=== PATIENT | female | born 1980 | race Two or more races ===

== ENCOUNTER 2018-11-24 11:56 | Inpatient (IN) | payer BC ==
[~2018-11-24] VITALS: Ht 154.9 cm; Wt 111.1 kg
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
[2018-11-24 12:05] VITALS: BP 115/58
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
[2018-11-24 12:56] LABS: APPEARANCE,URINE CLEAR; BILIRUBIN, URINE NEGATIVE (NEGATIVE); COLOR,URINE PALE YELLOW; GLUCOSE, URINE (UA) NEGATIVE (NEGATIVE); KETONES,URINE 3+ (NEGATIVE); LEUKOCYTE ESTERASE ,URINE 2+ (NEGATIVE); NITRITE,URINE NEGATIVE (NEGATIVE); PH,URINE 7 (4.5-8.0); PROTEIN,URINE NEGATIVE (NEGATIVE); UROBILINOGEN,URINE NORMAL MG/DL (0.0-1.0)
[2018-11-24 13:03] LABS: BASOPHILS % (AUTO) 1.1 % (0.0-2.0); EOSINOPHILS % (AUTO) 0.6 % (0.0-3.0); HEMATOCRIT 36.1 % (37.0-47.0); HEMOGLOBIN 10.5 G/DL (12.0-16.0); LYMPHOCYTES % (AUTO) 22.3 % (20.0-45.0); MEAN CORPUSCULAR VOLUME 62 FL (80-99); MONOCYTES % (AUTO) 7.5 % (1.0-10.0); NEUTROPHILS % (AUTO) 68.6 % (45.0-75.0); PLATELET COUNT 366 K/UL (150-450); RED BLOOD COUNT 5.81 M/UL (4.20-5.40)
[2018-11-24 13:12] LABS: ANION GAP 12 mmol/L (5-15); BLOOD UREA NITROGEN 18 mg/dL (7-18); CALCIUM 9.9 MG/DL (8.5-10.1); CARBON DIOXIDE 24 MMOL/L (21-32); CHLORIDE 101 MMOL/L (98-107); CREATININE 0.7 MG/DL (0.55-1.30); POTASSIUM 3.5 MMOL/L (3.5-5.1); SODIUM 137 MMOL/L (136-145)
[2018-11-24 13:24] LABS: ALANINE AMINOTRANSFERASE 29 U/L (12-78); ALBUMIN 3.9 G/DL (3.4-5.0); ALBUMIN/GLOBULIN RATIO 0.8 (1.0-2.7); ALKALINE PHOSPHATASE 132 U/L (46-116); ASPARTATE AMINO TRANSFERASE 37 U/L (15-37); BILIRUBIN,TOTAL 1.3 MG/DL (0.2-1.0); CREATINE KINASE 166 U/L (26-308)
[2018-11-24 13:25] LABS: BILIRUBIN,DIRECT 0.2 MG/DL (0.0-0.3)
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
[2018-11-24] MEDS ORDERED: Metoprolol 5mg/5ml Inj IVP STA (13:38)
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
--- NOTE | 2018-11-24 13:55 | NUR ---
ED Nurse Note: asked ERMD for purpose of Metoprolol. per ERMD it is for NSTEMI. ok to administrate.
[2018-11-24] MEDS ORDERED: NKM (14:13)
[2018-11-24] MEDS ORDERED: Azithromycin 250mg tab ORAL ONE (14:15)
[2018-11-24] MEDS ORDERED: cefTRIAXone 1 GM in NS 55 ML IVPB ONE (14:15)
--- NOTE | 2018-11-24 15:14 | NUR ---
ED Nurse Note: x-ray at bedside.
--- NOTE | 2018-11-24 15:19 | NUR ---
ED Nurse Note: report given to MJ Miranda. pt will be transfer after ERMD review the chest x-ray results which was just taken.
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
--- NOTE | 2018-11-24 16:15 | NUR ---
ED Nurse Note: pt left unit with 1 RN and 1 fisheries technician in stable condition. [employer] will be directed to SDU when they arrive.
[2018-11-24 16:24] VITALS: BP 126/77
--- NOTE | 2018-11-24 16:25 | NUR ---
NURSE NOTES: Pt informed about MRSA, CRE and VRE screen but refused swabs.
--- NOTE | 2018-11-24 16:38 | Diagnostic Imaging Report ---
Indication: Reason For Exam: SYNCOPE Technique: Single AP view of the chest. Comparison: None. Findings: The cardiomediastinal silhouette is within normal limits. There is no focal consolidation, pneumothorax or pleural effusion. Osseous structures demonstrate no acute abnormality. IMPRESSION: No radiographic evidence of acute cardiopulmonary disease.
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
--- NOTE | 2018-11-24 16:49 | Cardiac Electrophysiology PN ---
Subjective Subjective [id number] Objective Last 24 Hour Vital Signs Date Time Temp Pulse Resp B/P (MAP) Pulse Ox O2 Delivery O2 Flow Rate FiO2 11/24/18 16:15 98.2 84 16 101/70 100 Room Air 11/24/18 13:53 70 118/66 11/24/18 12:05 74 16 Room Air 11/24/18 12:05 98.2 74 16 115/58 100 Room Air 11/24/18 11:54 98.2 73 16 123/77 (92) 100 Room Air Laboratory Tests Test 11/24/18 12:29 White Blood Count 9.0 K/UL (4.8-10.8) Red Blood Count 5.81 M/UL (4.20-5.40) H Hemoglobin 10.5 G/DL (12.0-16.0) L Hematocrit 36.1 % (37.0-47.0) L Mean Corpuscular Volume 62 FL (80-99) L Mean Corpuscular Hemoglobin 18.1 PG (27.0-31.0) L Mean Corpuscular Hemoglobin Concent 29.1 G/DL (32.0-36.0) L Red Cell Distribution Width 16.0 % (11.6-14.8) H Platelet Count 366 K/UL (150-450) Mean Platelet Volume 5.6 FL (6.5-10.1) L Neutrophils (%) (Auto) 68.6 % (45.0-75.0) Lymphocytes (%) (Auto) 22.3 % (20.0-45.0) Monocytes (%) (Auto) 7.5 % (1.0-10.0) Eosinophils (%) (Auto) 0.6 % (0.0-3.0) Basophils (%) (Auto) 1.1 % (0.0-2.0) Urine Color Pale yellow Urine Appearance Clear Urine pH 7 (4.5-8.0) Urine Specific [place] 1.010 (1.005-1.035) Urine Protein Negative (NEGATIVE) Urine Glucose (UA) Negative (NEGATIVE) Urine Ketones 3+ (NEGATIVE) H Urine Blood Negative (NEGATIVE) Urine Nitrite Negative (NEGATIVE) Urine Bilirubin Negative (NEGATIVE) Urine Urobilinogen Normal MG/DL (0.0-1.0) Urine Leukocyte Esterase 2+ (NEGATIVE) H Urine RBC 5-10 /HPF (0 - 2) H Urine WBC 0-2 /HPF (0 - 2) Urine Squamous Epithelial Cells Moderate /LPF (NONE/OCC) H Urine Bacteria Few /HPF (NONE) Urine HCG, Qualitative Negative (NEGATIVE) Sodium Level 137 MMOL/L (136-145) Potassium Level 3.5 MMOL/L (3.5-5.1) Chloride Level 101 MMOL/L (98-107) Carbon Dioxide Level 24 MMOL/L (21-32) Anion Gap 12 mmol/L (5-15) Blood Urea Nitrogen 18 mg/dL (7-18) Creatinine 0.7 MG/DL (0.55-1.30) Estimat Glomerular Filtration Rate > 60 mL/min (>60) Glucose Level 115 MG/DL (74-106) H Calcium Level 9.9 MG/DL (8.5-10.1) Total Bilirubin 1.3 MG/DL (0.2-1.0) H Direct Bilirubin 0.2 MG/DL (0.0-0.3) Aspartate Amino Transf (AST/SGOT) 37 U/L (15-37) Alanine Aminotransferase (ALT/SGPT) 29 U/L (12-78) Alkaline Phosphatase 132 U/L (46-116) H Total Creatine Kinase 166 U/L (26-308) Troponin I 0.192 ng/mL (0.000-0.056) Total Protein 9.1 G/DL (6.4-8.2) H Albumin 3.9 G/DL (3.4-5.0) Globulin 5.2 g/dL Albumin/Globulin Ratio 0.8 (1.0-2.7) L Thyroid Stimulating Hormone (TSH) 1.049 uiU/mL (0.358-3.740) Salicylates Level < 0.2 ug/mL (2.8-20) L Urine Opiates Screen Negative (NEGATIVE) Acetaminophen Level < 2 MCG/ML (10-30) L Urine Barbiturates Screen Negative (NEGATIVE) Phencyclidine (PCP) Screen Negative (NEGATIVE) Urine Amphetamines Screen Positive (NEGATIVE) H Urine Benzodiazepines Screen Negative (NEGATIVE) Urine Cocaine Screen Negative (NEGATIVE) Urine Marijuana (THC) Screen Negative (NEGATIVE) Serum Alcohol < 3 mg/dL Chlamydia trachomatis RNA Pending Neisseria gonorrhoeae RNA Pending Isaias Pugh MD Nov 24, 2018 16:49
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
--- NOTE | 2018-11-24 19:26 | NUR ---
HAND-OFF: Report given to MJ Mitchell. Pt in stable condition.
--- NOTE | 2018-11-24 19:27 | NUR ---
NURSE NOTES: Received bedside report from MJ Valentine.Patient stable,A&O x4,no c/o pain,no respiratory distress noted,tolerated r/air well,diminished lungs sounds bilateral,BS active in all quadrants,IV asymptomatic,on L hand 20G 1/2 NS @ 70ml/hr,bed secured in a low safety position,pt ambulatory stable,call light within a reach.Will continue to monitor and follow POC
[2018-11-24 20:00] VITALS: BP 112/83
--- NOTE | 2018-11-24 20:17 | NUR ---
NURSE NOTES: Received a phone call from lab,Troponin 0.153 it's trending down.Charge nurse aware.
--- NOTE | 2018-11-24 20:18 | NUR ---
NURSE NOTES: Received an order from to change pt's diet from NPO to cardiac,charge nurse aware.
[2018-11-24] MEDS: Atorvastatin 20mg tab ORAL SCH (20:51)
[2018-11-24] MEDS ORDERED: Metoprolol 25mg tab ORAL SCH (21:00)
[2018-11-25] VITALS: BP 110/78
[2018-11-25 04:00] VITALS: BP 120/68
[2018-11-25 05:19] LABS: BASOPHILS % (AUTO) 0.7 % (0.0-2.0); EOSINOPHILS % (AUTO) 2.1 % (0.0-3.0); HEMOGLOBIN 9.4 G/DL (12.0-16.0); LYMPHOCYTES % (AUTO) 25.9 % (20.0-45.0); MEAN CORPUSCULAR VOLUME 62 FL (80-99); MONOCYTES % (AUTO) 7.6 % (1.0-10.0); NEUTROPHILS % (AUTO) 63.7 % (45.0-75.0); PLATELET COUNT 340 K/UL (150-450); RED BLOOD COUNT 5.12 M/UL (4.20-5.40); RED CELL DISTRIBUTION WIDTH 15.8 % (11.6-14.8); WHITE BLOOD COUNT 9.2 K/UL (4.8-10.8)
[2018-11-25 05:52] LABS: ALANINE AMINOTRANSFERASE 24 U/L (12-78); ALBUMIN 3.4 G/DL (3.4-5.0); ALBUMIN/GLOBULIN RATIO 0.8 (1.0-2.7); ALKALINE PHOSPHATASE 123 U/L (46-116); ANION GAP 8 mmol/L (5-15); ASPARTATE AMINO TRANSFERASE 21 U/L (15-37); BILIRUBIN,TOTAL 1.1 MG/DL (0.2-1.0); BLOOD UREA NITROGEN 14 mg/dL (7-18); CALCIUM 8.9 MG/DL (8.5-10.1); CARBON DIOXIDE 27 MMOL/L (21-32); CHLORIDE 104 MMOL/L (98-107); CHOLESTEROL 112 MG/DL (< 200); CREATININE 0.6 MG/DL (0.55-1.30); HDL CHOLESTEROL 25 MG/DL (40-60); POTASSIUM 3.6 MMOL/L (3.5-5.1); SODIUM 139 MMOL/L (136-145); TRIGLYCERIDES 94 MG/DL (30-150)
[2018-11-25 06:11] LABS: BILIRUBIN,DIRECT 0.3 MG/DL (0.0-0.3)
--- NOTE | 2018-11-25 07:31 | NUR ---
HAND-OFF: Report given to MJ Dean/MJ Pennington.Patient sleeping,stable.
--- NOTE | 2018-11-25 07:32 | NUR ---
NURSE NOTES: Report received from MJ Mitchell. Pt was awake, A & O x4, able to ambulate to restroom. NSR on athletic monitor. On room air. Pt denies chest pain and no other discomfort. IV Lt Hand #20, running 1/2 NS @ 70mL/hr. Bed in lowest position, call light within reach, side rails up x2. Will resume plan of care.
[2018-11-25 08:00] VITALS: BP 156/114
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
[2018-11-25 08:49] LABS: FERRITIN 11 NG/ML (8-388); PHOSPHORUS 5.1 MG/DL (2.5-4.9)
[2018-11-25 09:03] LABS: % IRON SATURATION 6 % (15-50); IRON 27 ug/dL (50-175); TOTAL IRON BINDING CAPACITY 442 ug/dL (250-450)
--- NOTE | 2018-11-25 09:30 | NUR ---
NURSE NOTES: 2D echo being done at bedside. Will administer medication after 2D echo.
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
--- NOTE | 2018-11-25 10:00 | NUR ---
NURSE NOTES: Venous duplex done at bedside. Negative results. OK to apply SCD.
[2018-11-25] MEDS: Aspirin EC 325mg tab ORAL SCH (10:24)
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
[2018-11-25 12:00] VITALS: BP_SYST 108; BP_SYST 146; BP_DIAS 111; BP_DIAS 75
--- NOTE | 2018-11-25 13:26 | Consultation ---
Consult Note Consult Note asked to eval for abnormal UA and fluid management Patient presents with near syncope. Apparently she has not eaten anything since Friday. She was taking a shower and felt that she was about to pass out. She says that she lost her vision when she was laying down after getting out of the shower. She felt hot flashes during that time. She feels overwhelmed by taking care of her children at this time she is not having any help from her who is not living with her. She does have some help from her brother. Recently she is lost contact with her parents and also with a younger sibling. Patient reports gestational diabetes. She has a 1-1/2-year-old at home. She states she feels safe at home. No fevers, chills, sore throat, chest pain, palpitations, nausea, vomiting, diarrhea, dysuria, abdominal pain, shortness of breath, joint pain, rashes, headache. See further history and medical treatment plan. No Known Allergies examined data reviewed Assessment/Plan UTI Dehydration Low Iron Anemia Gestational Dm Obese Near syncope NSTEMI (non-ST elevated myocardial infarction)- elevated troponin I Major depression Tox screen positive for amphetamine IV Iron Urine cultures Keep BP in check HgbA1c per orders Paul Cagle MD Nov 25, 2018 13:26
--- NOTE | 2018-11-25 13:31 | NUR ---
NURSE NOTES: Pt c/o of nausea. PRN Zofran 4MG IV given. Will reasses pt.
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
[2018-11-25 16:00] VITALS: BP 93/49
[2018-11-25] MEDS: Docusate 100mg cap ORAL SCH (17:24)
--- NOTE | 2018-11-25 19:10 | NUR ---
NURSE NOTES: Pt report received from Jose Juan Maurer. pt appears to be stable and resting in bed. pt is alert and oriented times 4. and able to folow commands.. pt vital sings are stable. pt cyber security instructor shows normal SR at this moment, no abnormalities noted cardiac jacobsen. pt is on room air and able to sat at 100%, no abnormalities noted respiratory jacobsen. pts bed is low and locked, armed, and bed rails up times 2, call light within reach. will continue plan of care.
--- NOTE | 2018-11-25 19:28 | NUR ---
HAND-OFF: Report given to Arun Mills RN.
[2018-11-25 20:00] VITALS: BP 107/54
[2018-11-25] MEDS: Atorvastatin 20mg tab ORAL SCH (20:48)
[2018-11-25] MEDS ORDERED: Iron Sucrose 100 MG in NS 55 ML IV SCH (21:00)
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
[2018-11-26] VITALS: BP 135/78
[2018-11-26 04:00] VITALS: BP 113/60
[2018-11-26 05:02] LABS: BASOPHILS % (AUTO) 0.7 % (0.0-2.0); EOSINOPHILS % (AUTO) 2.3 % (0.0-3.0); HEMATOCRIT 32.9 % (37.0-47.0); HEMOGLOBIN 9.5 G/DL (12.0-16.0); LYMPHOCYTES % (AUTO) 27.3 % (20.0-45.0); MEAN CORPUSCULAR VOLUME 63 FL (80-99); MONOCYTES % (AUTO) 8.2 % (1.0-10.0); NEUTROPHILS % (AUTO) 61.5 % (45.0-75.0); PLATELET COUNT 314 K/UL (150-450); RED BLOOD COUNT 5.24 M/UL (4.20-5.40); RED CELL DISTRIBUTION WIDTH 16.4 % (11.6-14.8); WHITE BLOOD COUNT 7.8 K/UL (4.8-10.8)
[2018-11-26 05:59] LABS: PHOSPHORUS 4.2 MG/DL (2.5-4.9)
[2018-11-26 06:02] LABS: ALANINE AMINOTRANSFERASE 19 U/L (12-78); ALBUMIN 3.2 G/DL (3.4-5.0); ALBUMIN/GLOBULIN RATIO 0.7 (1.0-2.7); ALKALINE PHOSPHATASE 119 U/L (46-116); ANION GAP 11 mmol/L (5-15); ASPARTATE AMINO TRANSFERASE 19 U/L (15-37); BILIRUBIN,TOTAL 0.8 MG/DL (0.2-1.0); BLOOD UREA NITROGEN 10 mg/dL (7-18); CALCIUM 8.7 MG/DL (8.5-10.1); CARBON DIOXIDE 24 MMOL/L (21-32); CHLORIDE 105 MMOL/L (98-107); CHOLESTEROL 89 MG/DL (< 200); CREATININE 0.5 MG/DL (0.55-1.30); HDL CHOLESTEROL 25 MG/DL (40-60); POTASSIUM 3.2 MMOL/L (3.5-5.1); SODIUM 139 MMOL/L (136-145); TRIGLYCERIDES 75 MG/DL (30-150)
--- NOTE | 2018-11-26 06:24 | NUR ---
NURSE NOTES: contacted MD Loya and MD Serra about Pt Potassium 3.2. requested 40mEq K Dur PO. awaiting new orders.
--- NOTE | 2018-11-26 07:00 | NUR ---
NURSE NOTES: Received report from MJ Dias. Observed patient in bed, asleep, arousable to verbal stimuli. On room air, no respiratory distress noted at this time. Left hand IV 22g intact and patent with IV fluids infusing at prescribed rate. Denies pain/discomfort at this time. Safety precautions in place. Bed locked, alarmed and in lowest position, side rails up x3, and call light left within reach. Instructed to call for assistance, verbalized understanding. Will continue with plan of care.
--- NOTE | 2018-11-26 07:10 | NUR ---
HAND-OFF: Report given to Kristi Olivas pt remains in stable condition.
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
[2018-11-26 08:00] VITALS: BP 130/76
[2018-11-26] MEDS: Docusate 100mg cap ORAL SCH ×3 (08:21→17:51)
[2018-11-26] MEDS: Aspirin EC 325mg tab ORAL SCH (08:21)
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
[2018-11-26 12:00] VITALS: BP 117/66
--- NOTE | 2018-11-26 13:13 | NUR ---
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
--- NOTE | 2018-11-26 13:26 | Nephrology Progress Note ---
Assessment/Plan Problem List: (1) Near syncope (2) UTI (urinary tract infection) (3) Dehydration (4) Amphetamine abuse Assessment: + urine for met (5) Iron (Fe) deficiency anemia (6) Obese Assessment UTI Dehydration Low Iron Anemia Gestational DM- A1c up Obese Near syncope NSTEMI (non-ST elevated myocardial infarction)- elevated troponin I Major depression Tox screen positive for amphetamine Plan IV Iron- K supplement- Urine cultures Keep BP in check per orders Subjective ROS Limited/Unobtainable: No Constitutional: Reports: malaise Objective Objective Last 24 Hour Vital Signs Date Time Temp Pulse Resp B/P (MAP) Pulse Ox O2 Delivery O2 Flow Rate FiO2 11/26/18 12:00 98.0 90 20 117/66 (83) 98 11/26/18 12:00 Room Air 11/26/18 08:21 82 130/76 11/26/18 08:00 97.5 82 20 130/76 (94) 98 11/26/18 08:00 Room Air 11/26/18 07:40 80 11/26/18 04:00 98.2 62 20 113/60 (77) 100 11/26/18 04:00 60 11/26/18 04:00 Room Air 11/26/18 00:00 98.0 77 17 135/78 (97) 100 11/26/18 00:00 Room Air 11/26/18 00:00 70 11/25/18 20:00 66 11/25/18 20:00 98.2 68 16 107/54 (71) 100 11/25/18 20:00 Room Air 11/25/18 16:00 97.3 66 16 93/49 (64) 99 11/25/18 16:00 Room Air 11/25/18 15:11 70 Intake and Output 11/25/18 11/26/18 19:00 07:00 Intake Total 721.9 ml 655 ml Balance 721.9 ml 655 ml IV Total 721.9 ml 655 ml # Voids 3 # Bowel Movements 2 Laboratory Tests 11/26/18 03:46: White Blood Count 7.8, Red Blood Count 5.24, Hemoglobin 9.5L, Hematocrit 32.9L, Mean Corpuscular Volume 63L, Mean Corpuscular Hemoglobin 18.1L, Mean Corpuscular Hemoglobin Concent 28.9L, Red Cell Distribution Width 16.4H, Platelet Count 314, Mean Platelet Volume 5.5L, Neutrophils (%) (Auto) 61.5, Lymphocytes (%) (Auto) 27.3, Monocytes (%) (Auto) 8.2, Eosinophils (%) (Auto) 2.3, Basophils (%) (Auto) 0.7, Sodium Level 139, Potassium Level 3.2L, Chloride Level 105, Carbon Dioxide Level 24, Anion Gap 11, Blood Urea Nitrogen 10, Creatinine 0.5L, Estimat Glomerular Filtration Rate > 60, Glucose Level 85, Hemoglobin A1c 6.1H, Insulin Level [Pending], Calcium Level 8.7, Phosphorus Level 4.2, Magnesium Level 2.0, Total Bilirubin 0.8, Aspartate Amino Transf (AST /SGOT) 19, Alanine Aminotransferase (ALT/SGPT) 19, Alkaline Phosphatase 119H, C- Reactive Protein, Quantitative 0.6, Pro-B-Type Natriuretic Peptide 121, Total Protein 8.0, Albumin 3.2L, Globulin 4.8, Albumin/Globulin Ratio 0.7L, Triglycerides Level 75, Cholesterol Level 89, LDL Cholesterol 58, HDL Cholesterol 25L, Cholesterol/HDL Ratio 3.6 Height (Feet): 5 Height (Inches): 1.00 Weight (Pounds): 245 General Appearance: no apparent distress Respiratory/Chest: decreased breath sounds Abdomen: other - obese Objective no change Paul Cagle MD Nov 26, 2018 13:26
--- NOTE | 2018-11-26 14:28 | Hematology/Onc Progress Note ---
Assessment/Plan Assessment/Plan # Anemia due to iron deficiency, cause potentially related to menstration, common in young female --> continue on iv iron x 5 days total --> anemia panel has been reviewed --> b12 and folate is wnl --> no evidence of hemolysis --> defer transfusion unless hgb is <7 # Gestational DM- A1c up --> recommend exercise, weight loss, diet modification --> endo eval prn # NSTEMI (non-ST elevated myocardial infarction)- elevated troponin I --> per cards, now decreased trop, outpatient stress echo # Major depression --> Tox screen positive for amphetamine --> psych eval # Obese --> same as above, lifestyle modification rec # Electrolyte abnml --> per renal The timing of this note does not necessarily reflect the time of the patient was seen. Greatly appreciate consultation! Subjective Allergies: Coded Allergies: No Known Allergies (Unverified , 11/24/18) Subjective 11/26: continuing on iv iron, no f/c, no night sweats Objective Objective Current Medications Medications (Trade) Dose Ordered Sig/Ramos Route PRN Reason Start Time Stop Time Status Last Admin Dose Admin Amlodipine Besylate (Norvasc) 10 mg DAILY ORAL 11/26/18 09:00 12/26/18 08:59 11/26/18 08:21 Aspirin (Ecotrin) 325 mg DAILY ORAL 11/25/18 09:00 12/25/18 08:59 11/26/18 08:21 Atorvastatin Calcium (Lipitor) 20 mg BEDTIME ORAL 11/24/18 21:00 12/24/18 20:59 11/25/18 20:48 Docusate Sodium (Colace) 100 mg THREE TIMES A DAY ORAL 11/25/18 18:00 12/25/18 17:59 11/26/18 08:21 Iron Sucrose 100 mg/Sodium Chloride 55 ml @ 200 mls/hr BEDTIME IV 11/25/18 21:00 12/04/18 21:17 11/25/18 20:48 Ondansetron HCl (Zofran) 4 mg Q6H PRN IVP Nausea & Vomiting 11/24/18 15:45 12/24/18 15:44 11/25/18 13:31 Pantoprazole (Protonix) 40 mg EVERY 12 HOURS ORAL 11/25/18 21:00 12/25/18 20:59 11/26/18 08:21 Potassium Chloride (K-Dur) 40 meq TWICE A DAY ORAL 11/26/18 09:00 12/26/18 08:59 11/26/18 08:29 Sodium Chloride 1,000 ml @ 50 mls/hr Q20H IV 11/25/18 13:29 12/25/18 13:28 11/26/18 08:30 Last 24 Hour Vital Signs Date Time Temp Pulse Resp B/P (MAP) Pulse Ox O2 Delivery O2 Flow Rate FiO2 11/26/18 12:00 98.0 90 20 117/66 (83) 98 11/26/18 12:00 Room Air 11/26/18 11:27 89 11/26/18 08:21 82 130/76 11/26/18 08:00 97.5 82 20 130/76 (94) 98 11/26/18 08:00 Room Air 11/26/18 07:40 80 11/26/18 04:00 98.2 62 20 113/60 (77) 100 11/26/18 04:00 60 11/26/18 04:00 Room Air 11/26/18 00:00 98.0 77 17 135/78 (97) 100 11/26/18 00:00 Room Air 11/26/18 00:00 70 11/25/18 20:00 66 11/25/18 20:00 98.2 68 16 107/54 (71) 100 11/25/18 20:00 Room Air 11/25/18 16:00 97.3 66 16 93/49 (64) 99 11/25/18 16:00 Room Air 11/25/18 15:11 70 11/25/18 12:00 83 11/25/18 12:00 97.8 88 20 108/75 (86) 99 11/25/18 12:00 Room Air 11/25/18 08:00 88 11/25/18 08:00 Room Air 11/25/18 08:00 98.2 101 18 156/114 (128) 99 11/25/18 04:00 Room Air 11/25/18 04:00 97.9 71 20 120/68 (85) 98 11/25/18 03:34 72 11/25/18 00:00 Room Air 11/25/18 00:00 97.9 85 20 110/78 (89) 97 11/24/18 23:21 75 11/24/18 20:51 72 112/62 11/24/18 20:00 97.9 76 20 112/83 (93) 100 11/24/18 20:00 Room Air 11/24/18 19:22 76 11/24/18 16:30 80 11/24/18 16:30 80 11/24/18 16:24 Room Air 11/24/18 16:24 98.0 84 22 126/77 (93) 99 11/24/18 16:15 98.2 84 16 101/70 100 Room Air 11/24/18 16:00 Room Air Intake and Output 11/25/18 11/26/18 19:00 07:00 Intake Total 721.9 ml 655 ml Balance 721.9 ml 655 ml IV Total 721.9 ml 655 ml # Voids 3 # Bowel Movements 2 Labs Test 11/24/18 12:29 11/24/18 19:25 11/25/18 02:50 11/25/18 03:00 White Blood Count 9.0 K/UL (4.8-10.8) 9.2 K/UL (4.8-10.8) Red Blood Count 5.81 M/UL (4.20-5.40) 5.12 M/UL (4.20-5.40) Hemoglobin 10.5 G/DL (12.0-16.0) 9.4 G/DL (12.0-16.0) Hematocrit 36.1 % (37.0-47.0) 32.0 % (37.0-47.0) Mean Corpuscular Volume 62 FL (80-99) 62 FL (80-99) Mean Corpuscular Hemoglobin 18.1 PG (27.0-31.0) 18.3 PG (27.0-31.0) Mean Corpuscular Hemoglobin Concent 29.1 G/DL (32.0-36.0) 29.3 G/DL (32.0-36.0) Red Cell Distribution Width 16.0 % (11.6-14.8) 15.8 % (11.6-14.8) Platelet Count 366 K/UL (150-450) 340 K/UL (150-450) Mean Platelet Volume 5.6 FL (6.5-10.1) 5.5 FL (6.5-10.1) Neutrophils (%) (Auto) 68.6 % (45.0-75.0) 63.7 % (45.0-75.0) Lymphocytes (%) (Auto) 22.3 % (20.0-45.0) 25.9 % (20.0-45.0) Monocytes (%) (Auto) 7.5 % (1.0-10.0) 7.6 % (1.0-10.0) Eosinophils (%) (Auto) 0.6 % (0.0-3.0) 2.1 % (0.0-3.0) Basophils (%) (Auto) 1.1 % (0.0-2.0) 0.7 % (0.0-2.0) Urine Color Pale yellow Urine Appearance Clear Urine pH 7 (4.5-8.0) Urine Specific [place] 1.010 (1.005-1.035) Urine Protein Negative (NEGATIVE) Urine Glucose (UA) Negative (NEGATIVE) Urine Ketones 3+ (NEGATIVE) Urine Blood Negative (NEGATIVE) Urine Nitrite Negative (NEGATIVE) Urine Bilirubin Negative (NEGATIVE) Urine Urobilinogen Normal MG/DL (0.0-1.0) Urine Leukocyte Esterase 2+ (NEGATIVE) Urine RBC 5-10 /HPF (0 - 2) Urine WBC 0-2 /HPF (0 - 2) Urine Squamous Epithelial Cells Moderate /LPF (NONE/OCC) Urine Bacteria Few /HPF (NONE) Urine HCG, Qualitative Negative (NEGATIVE) Sodium Level 137 MMOL/L (136-145) 139 MMOL/L (136-145) Potassium Level 3.5 MMOL/L (3.5-5.1) 3.6 MMOL/L (3.5-5.1) Chloride Level 101 MMOL/L (98-107) 104 MMOL/L (98-107) Carbon Dioxide Level 24 MMOL/L (21-32) 27 MMOL/L (21-32) Anion Gap 12 mmol/L (5-15) 8 mmol/L (5-15) Blood Urea Nitrogen 18 mg/dL (7-18) 14 mg/dL (7-18) Creatinine 0.7 MG/DL (0.55-1.30) 0.6 MG/DL (0.55-1.30) Estimat Glomerular Filtration Rate > 60 mL/min (>60) > 60 mL/min (>60) Glucose Level 115 MG/DL (74-106) 107 MG/DL (74-106) Calcium Level 9.9 MG/DL (8.5-10.1) 8.9 MG/DL (8.5-10.1) Total Bilirubin 1.3 MG/DL (0.2-1.0) 1.1 MG/DL (0.2-1.0) Direct Bilirubin 0.2 MG/DL (0.0-0.3) 0.3 MG/DL (0.0-0.3) Aspartate Amino Transf (AST/SGOT) 37 U/L (15-37) 21 U/L (15-37) Alanine Aminotransferase (ALT/SGPT) 29 U/L (12-78) 24 U/L (12-78) Alkaline Phosphatase 132 U/L (46-116) 123 U/L (46-116) Total Creatine Kinase 166 U/L (26-308) Troponin I 0.192 ng/mL (0.000-0.056) 0.153 ng/mL (0.000-0.056) 0.084 ng/mL (0.000-0.056) Total Protein 9.1 G/DL (6.4-8.2) 7.6 G/DL (6.4-8.2) Albumin 3.9 G/DL (3.4-5.0) 3.4 G/DL (3.4-5.0) Globulin 5.2 g/dL 4.2 g/dL Albumin/Globulin Ratio 0.8 (1.0-2.7) 0.8 (1.0-2.7) Thyroid Stimulating Hormone (TSH) 1.049 uiU/mL (0.358-3.740) Salicylates Level < 0.2 ug/mL (2.8-20) Urine Opiates Screen Negative (NEGATIVE) Acetaminophen Level < 2 MCG/ML (10-30) Urine Barbiturates Screen Negative (NEGATIVE) Phencyclidine (PCP) Screen Negative (NEGATIVE) Urine Amphetamines Screen Positive (NEGATIVE) Urine Benzodiazepines Screen Negative (NEGATIVE) Urine Cocaine Screen Negative (NEGATIVE) Urine Marijuana (THC) Screen Negative (NEGATIVE) Serum Alcohol < 3 mg/dL Chlamydia trachomatis RNA Negative (Negative) Neisseria gonorrhoeae RNA Negative (Negative) Pro-B-Type Natriuretic Peptide 205 pg/mL (0-125) Triglycerides Level 94 MG/DL (30-150) Cholesterol Level 112 MG/DL (< 200) LDL Cholesterol 73 mg/dL (<100) HDL Cholesterol 25 MG/DL (40-60) Cholesterol/HDL Ratio 4.5 (3.3-4.4) Uric Acid 5.3 MG/DL (2.6-7.2) Phosphorus Level 5.1 MG/DL (2.5-4.9) Magnesium Level 2.0 MG/DL (1.8-2.4) Iron Level 27 ug/dL (50-175) Total Iron Binding Capacity 442 ug/dL (250-450) Percent Iron Saturation 6 % (15-50) Unsaturated Iron Binding 415 ug/dL (112-346) Ferritin 11 NG/ML (8-388) Vitamin B12 Level 344 PG/ML (193-986) Folate 16.4 NG/ML (8.6-58.9) Test 11/26/18 03:46 White Blood Count 7.8 K/UL (4.8-10.8) Red Blood Count 5.24 M/UL (4.20-5.40) Hemoglobin 9.5 G/DL (12.0-16.0) Hematocrit 32.9 % (37.0-47.0) Mean Corpuscular Volume 63 FL (80-99) Mean Corpuscular Hemoglobin 18.1 PG (27.0-31.0) Mean Corpuscular Hemoglobin Concent 28.9 G/DL (32.0-36.0) Red Cell Distribution Width 16.4 % (11.6-14.8) Platelet Count 314 K/UL (150-450) Mean Platelet Volume 5.5 FL (6.5-10.1) Neutrophils (%) (Auto) 61.5 % (45.0-75.0) Lymphocytes (%) (Auto) 27.3 % (20.0-45.0) Monocytes (%) (Auto) 8.2 % (1.0-10.0) Eosinophils (%) (Auto) 2.3 % (0.0-3.0) Basophils (%) (Auto) 0.7 % (0.0-2.0) Sodium Level 139 MMOL/L (136-145) Potassium Level 3.2 MMOL/L (3.5-5.1) Chloride Level 105 MMOL/L (98-107) Carbon Dioxide Level 24 MMOL/L (21-32) Anion Gap 11 mmol/L (5-15) Blood Urea Nitrogen 10 mg/dL (7-18) Creatinine 0.5 MG/DL (0.55-1.30) Estimat Glomerular Filtration Rate > 60 mL/min (>60) Glucose Level 85 MG/DL (74-106) Hemoglobin A1c 6.1 % (4.3-6.0) Calcium Level 8.7 MG/DL (8.5-10.1) Phosphorus Level 4.2 MG/DL (2.5-4.9) Magnesium Level 2.0 MG/DL (1.8-2.4) Total Bilirubin 0.8 MG/DL (0.2-1.0) Aspartate Amino Transf (AST/SGOT) 19 U/L (15-37) Alanine Aminotransferase (ALT/SGPT) 19 U/L (12-78) Alkaline Phosphatase 119 U/L (46-116) C-Reactive Protein, Quantitative 0.6 mg/dL (0.00-0.90) Pro-B-Type Natriuretic Peptide 121 pg/mL (0-125) Total Protein 8.0 G/DL (6.4-8.2) Albumin 3.2 G/DL (3.4-5.0) Globulin 4.8 g/dL Albumin/Globulin Ratio 0.7 (1.0-2.7) Triglycerides Level 75 MG/DL (30-150) Cholesterol Level 89 MG/DL (< 200) LDL Cholesterol 58 mg/dL (<100) HDL Cholesterol 25 MG/DL (40-60) Cholesterol/HDL Ratio 3.6 (3.3-4.4) Height (Feet): 5 Height (Inches): 1.00 Weight (Pounds): 245 Objective HEENT: PERRLA. NECK: Supple. CHEST: Clear to auscultation. CARDIOVASCULAR: Regular rhythm and rhythm. GASTROINTESTINAL: Soft, nontender, and nondistended. No organomegaly. EXTREMITIES: No edema. NEUROLOGIC: Sensory intact to light touch. Reflexes on both sides. Carlito Jesus MD Nov 26, 2018 14:28
--- NOTE | 2018-11-26 15:00 | NUR ---
TRANSFER TO FLOOR: Patient transferred to [facility], room 320-2, per Dr Murphy. Report given to MJ Allison. Belongings acknowledged and signed by receiving nurse. Belongings at bedside with patient. surveillance monitor removed prior to transfer. Patient remains stable at this time.
[2018-11-26 16:00] VITALS: BP 122/65
--- NOTE | 2018-11-26 17:13 | NUR ---
NURSE NOTES: Pt received from [facility].She is in stable condition refused placement of scds . " Im okay I haven't had them on" Purpose of scds explained. Belongings are at bedside. Current plan of care will be followed
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
--- NOTE | 2018-11-26 19:49 | NUR ---
HAND-OFF: Report given to lorenzo ROBERT.
[2018-11-26 20:00] VITALS: BP 115/68
[2018-11-26] MEDS ORDERED: Atorvastatin 20mg tab ORAL SCH (21:00)
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
[2018-11-27] VITALS: BP 102/65
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
[2018-11-27 04:00] VITALS: BP 118/70
[2018-11-27 05:56] LABS: BASOPHILS % (AUTO) 0.7 % (0.0-2.0); EOSINOPHILS % (AUTO) 2.8 % (0.0-3.0); HEMATOCRIT 32.1 % (37.0-47.0); HEMOGLOBIN 9.5 G/DL (12.0-16.0); LYMPHOCYTES % (AUTO) 31.2 % (20.0-45.0); MEAN CORPUSCULAR VOLUME 63 FL (80-99); MONOCYTES % (AUTO) 5.5 % (1.0-10.0); NEUTROPHILS % (AUTO) 59.8 % (45.0-75.0); PLATELET COUNT 291 K/UL (150-450); RED BLOOD COUNT 5.12 M/UL (4.20-5.40); RED CELL DISTRIBUTION WIDTH 16.8 % (11.6-14.8); WHITE BLOOD COUNT 7.3 K/UL (4.8-10.8)
[2018-11-27 06:08] LABS: ANION GAP 7 mmol/L (5-15); BLOOD UREA NITROGEN 10 mg/dL (7-18); CALCIUM 8.9 MG/DL (8.5-10.1); CARBON DIOXIDE 24 MMOL/L (21-32); CHLORIDE 106 MMOL/L (98-107); CREATININE 0.6 MG/DL (0.55-1.30); POTASSIUM 3.8 MMOL/L (3.5-5.1); SODIUM 137 MMOL/L (136-145)
--- NOTE | 2018-11-27 07:18 | NUR ---
HAND-OFF: Report given to Julio Cesar
--- NOTE | 2018-11-27 07:50 | NUR ---
NURSE NOTES: Report received rosana Correa LVN. Patient is observed in bed, asleep but arousable by voice. Patient denies pain at this time. IV site is asymptomatic, patent, and intact. Bed is in lowest position with side rails up x2 and brakes are engaged. Encouraged patient to use call light when in need of assistance, patient verbalized understanding.
[2018-11-27] MEDS: Docusate 100mg cap ORAL SCH ×3 (08:26→18:00)
[2018-11-27 08:44] VITALS: BP 117/87
[2018-11-27] MEDS ORDERED: Aspirin EC 325mg tab ORAL SCH (09:00)
[2018-11-27] MEDS ORDERED: 1/2 NS 1000ml IV ONE (09:12)
[2018-11-27] MEDS ORDERED: Tubing IV Secondary IV ONE (09:12)
--- NOTE | 2018-11-27 09:30 | NUR ---
SS note Yandel PALOMINO ([phone]) contacted this SW and planning to meet with patient today.
--- NOTE | 2018-11-27 09:37 | NUR ---
*-* INSURANCE *-* ALL CLINICALS AND REVIEWS HAVE BEEN FAXED TO: RAVI CABRERA:RUPESH P:[phone] F: [phone] REF# [id number]
--- NOTE | 2018-11-27 11:11 | NUR ---
RD ASSESSMENT & RECOMMENDATIONS SEE CARE ACTIVITY FOR COMPLETE ASSESSMENT DAILY ESTIMATED NEEDS: Needs based on Obese, cardiac 63.6kg adj 20-25 kcals/kg 8530-2758 total kcals 1-1.2 g protein/kg 64-76 g total protein 25-30 mL/kg 4941-6915 total fluid mLs NUTRITION DIAGNOSIS: Obesity r/t lifestyle? etiology unknown as evidenced by BMI 46 morbidly obese per guidelines, @233% of [place] Body Weight. (CURRENT DIET:Cardiac/ CCHO MED) PO DIET RECOMMENDATIONS--->>> Diet change to Cardiac/ [facility] LOW diet ADDITIONAL RECOMMENDATIONS: 1) Obtain a standing weight 2) acu checks for eval 3) Monitor lytes (phos previously elev), need for dietary restriction 4) Snacks in b/w meals w/ current poor to variable po intake
[2018-11-27 12:00] VITALS: BP 114/79
--- NOTE | 2018-11-27 12:00 | NUR ---
NURSE NOTES: Patient is asleep but arousable by voice. Denies pain at this time. VSS. Will continue to monitor.
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
--- NOTE | 2018-11-27 13:01 | Nephrology Progress Note ---
Assessment/Plan Problem List: (1) Near syncope (2) UTI (urinary tract infection) (3) Dehydration (4) Amphetamine abuse Assessment: + urine for met (5) Iron (Fe) deficiency anemia (6) Obese Assessment UTI Dehydration Low Iron Anemia Gestational DM- A1c up Obese Near syncope NSTEMI (non-ST elevated myocardial infarction)- elevated troponin I Major depression Tox screen positive for amphetamine Plan IV Iron- K supplement- Urine cultures Keep BP in check per orders stable from renal stand Subjective ROS Limited/Unobtainable: No Objective Objective Last 24 Hour Vital Signs Date Time Temp Pulse Resp B/P (MAP) Pulse Ox O2 Delivery O2 Flow Rate FiO2 11/27/18 08:46 Room Air 11/27/18 08:44 97.6 77 18 117/87 (97) 98 11/27/18 08:25 77 117/87 11/27/18 04:00 98.2 70 18 118/70 (86) 98 11/27/18 00:00 98.2 69 18 102/65 (77) 97 11/26/18 20:00 Room Air 11/26/18 20:00 98.0 70 18 115/68 (84) 99 11/26/18 16:00 97.9 88 18 122/65 (84) 99 11/26/18 16:00 Room Air 11/26/18 15:22 81 Intake and Output 11/26/18 11/27/18 19:00 07:00 Intake Total 975 ml 975 ml Balance 975 ml 975 ml Intake Oral 720 ml IV Total 475 ml 255 ml Other 500 ml # Voids 3 # Bowel Movements 1 Laboratory Tests 11/27/18 05:44: White Blood Count 7.3, Red Blood Count 5.12, Hemoglobin 9.5L, Hematocrit 32.1L, Mean Corpuscular Volume 63L, Mean Corpuscular Hemoglobin 18.6L, Mean Corpuscular Hemoglobin Concent 29.5L, Red Cell Distribution Width 16.8H, Platelet Count 291, Mean Platelet Volume 5.1L, Neutrophils (%) (Auto) 59.8, Lymphocytes (%) (Auto) 31.2, Monocytes (%) (Auto) 5.5, Eosinophils (%) (Auto) 2.8, Basophils (%) (Auto) 0.7, Sodium Level 137, Potassium Level 3.8, Chloride Level 106, Carbon Dioxide Level 24, Anion Gap 7, Blood Urea Nitrogen 10, Creatinine 0.6, Estimat Glomerular Filtration Rate > 60, Glucose Level 85, Calcium Level 8.9 Height (Feet): 5 Height (Inches): 1.00 Weight (Pounds): 245 General Appearance: no apparent distress Objective no change Paul Cagle MD Nov 27, 2018 13:01
--- NOTE | 2018-11-27 14:57 | NUR ---
NURSE NOTES: whiting can worker is at bedside.
[2018-11-27 16:00] VITALS: BP 140/79
--- NOTE | 2018-11-27 16:17 | NUR ---
NURSE NOTES: Primary MD at bedside. Discharge order noted. Primary MD provided discharge orders and/or instructions to the patient, patient verbalized understanding. From cardiology standpoint, patient is cleared for discharge.
--- NOTE | 2018-11-27 18:06 | Cardiology Report ---
APPROVED REPORT EXAM: Two-dimensional and M-mode echocardiogram with Doppler and color Doppler. INDICATION CAD M-Mode DIMENSIONS IVSd1.1 (0.7-1.1cm)Left Atrium (MM)3.4 (1.6-4.0cm) LVDd5.7 (3.5-5.6cm)Aortic Root2.5 (2.0-3.7cm) PWd1.0 (0.7-1.1cm)Aortic Cusp Exc.1.8 (1.5-2.0cm) IVSs1.4 cm LVDs3.6 (2.5-4.0cm) PWs1.4 cm Normal left ventricular chamber size, systolic function and wall motion . Left ventricular ejection fraction estimated to be 55-60 %. Mild left ventricular hypertrophy. No evidence of pericardial effusion. All other cardiac chamber sizes are within normal limits. Focal aortic valve sclerosis with adequate cusp excursion. Thickened mitral valve leaflets with normal excursion. Mitral annulus and aortic root calcification. Normal pulmonic valve structure. Normal tricuspid valve structure. IVC at normal size with physiologic collapse. A color flow and spectral Doppler study was performed and revealed: No aortic insufficiency. Trace mitral regurgitation. Mitral diastolic velocities suggest reduced left ventricular relaxation c/w mild LV diastolic dysfunction (Grade I ). Trace tricuspid regurgitation. Tricuspid systolic velocities suggests peak right ventricular systolic pressure of 19 mmHg.
--- NOTE | 2018-11-27 18:12 | Hematology/Onc Progress Note ---
Assessment/Plan Assessment/Plan # Anemia due to iron deficiency, cause potentially related to menstration, common in young female --> continue on iv iron x 5 days total --> anemia panel has been reviewed --> b12 and folate is wnl --> no evidence of hemolysis --> defer transfusion unless hgb is <7 # Gestational DM- A1c up --> recommend exercise, weight loss, diet modification --> endo eval prn # NSTEMI (non-ST elevated myocardial infarction)- elevated troponin I --> per cards, now decreased trop, outpatient stress echo, stable for dc # Major depression --> Tox screen positive for amphetamine --> psych eval # Obese --> same as above, lifestyle modification rec # Electrolyte abnml --> per renal The timing of this note does not necessarily reflect the time of the patient was seen. Greatly appreciate consultation! Subjective Cardiovascular: Denies: no symptoms, chest pain, edema, irregular heart rate, lightheadedness, palpitations, syncope, other Respiratory: Denies: no symptoms, cough, shortness of breath, SOB with excertion, SOB at rest, sputum, wheezing, other Gastrointestinal/Abdominal: Denies: no symptoms, abdomen distended, abdominal pain, black stools, tarry stools, blood in stool, constipated, diarrhea, difficulty swallowing, nausea, poor appetite, poor fluid intake, rectal bleeding , vomiting, other Neurologic/Psychiatric: Denies: no symptoms, anxiety, depressed, emotional problems, headache, numbness, paresthesia, pre-existing deficit, seizure, tingling, tremors, weakness, other Endocrine: Denies: no symptoms, excessive sweating, flushing, intolerance to cold, intolerance to heat, increased hunger, increased thirst, increased urine, unexplained weight gain, unexplained weight loss, other Allergies: Coded Allergies: No Known Allergies (Unverified , 11/24/18) Subjective 11/26: continuing on iv iron, no f/c, no night sweats 11/27: no events, no f/c, no night sweats no bleeding Objective Objective Current Medications Medications (Trade) Dose Ordered Sig/Ramos Route PRN Reason Start Time Stop Time Status Last Admin Dose Admin Amlodipine Besylate (Norvasc) 10 mg DAILY ORAL 11/27/18 09:00 12/26/18 08:59 11/27/18 08:25 Aspirin (Ecotrin) 325 mg DAILY ORAL 11/27/18 09:00 12/25/18 08:59 11/27/18 08:25 Atorvastatin Calcium (Lipitor) 20 mg BEDTIME ORAL 11/26/18 21:00 12/24/18 20:59 11/26/18 21:26 Docusate Sodium (Colace) 100 mg THREE TIMES A DAY ORAL 11/26/18 18:00 12/25/18 17:59 11/27/18 08:26 Iron Sucrose 100 mg/Sodium Chloride 55 ml @ 200 mls/hr BEDTIME IV 11/26/18 21:00 12/04/18 21:17 11/26/18 21:00 Ondansetron HCl (Zofran) 4 mg Q6H PRN IVP Nausea & Vomiting 11/26/18 17:15 12/24/18 17:14 Pantoprazole (Protonix) 40 mg EVERY 12 HOURS ORAL 11/26/18 21:00 12/25/18 20:59 11/27/18 08:26 Potassium Chloride (K-Dur) 40 meq TWICE A DAY ORAL 11/26/18 18:00 12/26/18 08:59 11/27/18 08:24 Sodium Chloride 1,000 ml @ 50 mls/hr Q20H IV 11/26/18 17:15 12/25/18 13:28 11/27/18 03:21 Last 24 Hour Vital Signs Date Time Temp Pulse Resp B/P (MAP) Pulse Ox O2 Delivery O2 Flow Rate FiO2 11/27/18 16:00 98.1 84 20 140/79 (99) 98 11/27/18 12:00 97.6 74 20 114/79 (91) 98 11/27/18 08:46 Room Air 11/27/18 08:44 97.6 77 18 117/87 (97) 98 11/27/18 08:25 77 117/87 11/27/18 04:00 98.2 70 18 118/70 (86) 98 11/27/18 00:00 98.2 69 18 102/65 (77) 97 11/26/18 20:00 Room Air 11/26/18 20:00 98.0 70 18 115/68 (84) 99 11/26/18 16:00 97.9 88 18 122/65 (84) 99 11/26/18 16:00 Room Air 11/26/18 15:22 81 11/26/18 12:00 98.0 90 20 117/66 (83) 98 11/26/18 12:00 Room Air 11/26/18 11:27 89 11/26/18 08:21 82 130/76 11/26/18 08:00 97.5 82 20 130/76 (94) 98 11/26/18 08:00 Room Air 11/26/18 07:40 80 11/26/18 04:00 98.2 62 20 113/60 (77) 100 11/26/18 04:00 60 11/26/18 04:00 Room Air 11/26/18 00:00 98.0 77 17 135/78 (97) 100 11/26/18 00:00 Room Air 11/26/18 00:00 70 11/25/18 20:00 66 11/25/18 20:00 98.2 68 16 107/54 (71) 100 11/25/18 20:00 Room Air Intake and Output 11/26/18 11/27/18 19:00 07:00 Intake Total 975 ml 975 ml Balance 975 ml 975 ml Intake Oral 720 ml IV Total 475 ml 255 ml Other 500 ml # Voids 3 # Bowel Movements 1 Labs Test 11/24/18 19:25 11/25/18 02:50 11/25/18 03:00 11/26/18 03:46 Troponin I 0.153 ng/mL (0.000-0.056) 0.084 ng/mL (0.000-0.056) White Blood Count 9.2 K/UL (4.8-10.8) 7.8 K/UL (4.8-10.8) Red Blood Count 5.12 M/UL (4.20-5.40) 5.24 M/UL (4.20-5.40) Hemoglobin 9.4 G/DL (12.0-16.0) 9.5 G/DL (12.0-16.0) Hematocrit 32.0 % (37.0-47.0) 32.9 % (37.0-47.0) Mean Corpuscular Volume 62 FL (80-99) 63 FL (80-99) Mean Corpuscular Hemoglobin 18.3 PG (27.0-31.0) 18.1 PG (27.0-31.0) Mean Corpuscular Hemoglobin Concent 29.3 G/DL (32.0-36.0) 28.9 G/DL (32.0-36.0) Red Cell Distribution Width 15.8 % (11.6-14.8) 16.4 % (11.6-14.8) Platelet Count 340 K/UL (150-450) 314 K/UL (150-450) Mean Platelet Volume 5.5 FL (6.5-10.1) 5.5 FL (6.5-10.1) Neutrophils (%) (Auto) 63.7 % (45.0-75.0) 61.5 % (45.0-75.0) Lymphocytes (%) (Auto) 25.9 % (20.0-45.0) 27.3 % (20.0-45.0) Monocytes (%) (Auto) 7.6 % (1.0-10.0) 8.2 % (1.0-10.0) Eosinophils (%) (Auto) 2.1 % (0.0-3.0) 2.3 % (0.0-3.0) Basophils (%) (Auto) 0.7 % (0.0-2.0) 0.7 % (0.0-2.0) Sodium Level 139 MMOL/L (136-145) 139 MMOL/L (136-145) Potassium Level 3.6 MMOL/L (3.5-5.1) 3.2 MMOL/L (3.5-5.1) Chloride Level 104 MMOL/L (98-107) 105 MMOL/L (98-107) Carbon Dioxide Level 27 MMOL/L (21-32) 24 MMOL/L (21-32) Anion Gap 8 mmol/L (5-15) 11 mmol/L (5-15) Blood Urea Nitrogen 14 mg/dL (7-18) 10 mg/dL (7-18) Creatinine 0.6 MG/DL (0.55-1.30) 0.5 MG/DL (0.55-1.30) Estimat Glomerular Filtration Rate > 60 mL/min (>60) > 60 mL/min (>60) Glucose Level 107 MG/DL (74-106) 85 MG/DL (74-106) Calcium Level 8.9 MG/DL (8.5-10.1) 8.7 MG/DL (8.5-10.1) Total Bilirubin 1.1 MG/DL (0.2-1.0) 0.8 MG/DL (0.2-1.0) Direct Bilirubin 0.3 MG/DL (0.0-0.3) Aspartate Amino Transf (AST/SGOT) 21 U/L (15-37) 19 U/L (15-37) Alanine Aminotransferase (ALT/SGPT) 24 U/L (12-78) 19 U/L (12-78) Alkaline Phosphatase 123 U/L (46-116) 119 U/L (46-116) Pro-B-Type Natriuretic Peptide 205 pg/mL (0-125) 121 pg/mL (0-125) Total Protein 7.6 G/DL (6.4-8.2) 8.0 G/DL (6.4-8.2) Albumin 3.4 G/DL (3.4-5.0) 3.2 G/DL (3.4-5.0) Globulin 4.2 g/dL 4.8 g/dL Albumin/Globulin Ratio 0.8 (1.0-2.7) 0.7 (1.0-2.7) Triglycerides Level 94 MG/DL (30-150) 75 MG/DL (30-150) Cholesterol Level 112 MG/DL (< 200) 89 MG/DL (< 200) LDL Cholesterol 73 mg/dL (<100) 58 mg/dL (<100) HDL Cholesterol 25 MG/DL (40-60) 25 MG/DL (40-60) Cholesterol/HDL Ratio 4.5 (3.3-4.4) 3.6 (3.3-4.4) Uric Acid 5.3 MG/DL (2.6-7.2) Phosphorus Level 5.1 MG/DL (2.5-4.9) 4.2 MG/DL (2.5-4.9) Magnesium Level 2.0 MG/DL (1.8-2.4) 2.0 MG/DL (1.8-2.4) Iron Level 27 ug/dL (50-175) Total Iron Binding Capacity 442 ug/dL (250-450) Percent Iron Saturation 6 % (15-50) Unsaturated Iron Binding 415 ug/dL (112-346) Ferritin 11 NG/ML (8-388) Vitamin B12 Level 344 PG/ML (193-986) Folate 16.4 NG/ML (8.6-58.9) Hemoglobin A1c 6.1 % (4.3-6.0) Insulin Level 10.0 uIU/mL (2.6-24.9) C-Reactive Protein, Quantitative 0.6 mg/dL (0.00-0.90) Test 11/27/18 05:44 White Blood Count 7.3 K/UL (4.8-10.8) Red Blood Count 5.12 M/UL (4.20-5.40) Hemoglobin 9.5 G/DL (12.0-16.0) Hematocrit 32.1 % (37.0-47.0) Mean Corpuscular Volume 63 FL (80-99) Mean Corpuscular Hemoglobin 18.6 PG (27.0-31.0) Mean Corpuscular Hemoglobin Concent 29.5 G/DL (32.0-36.0) Red Cell Distribution Width 16.8 % (11.6-14.8) Platelet Count 291 K/UL (150-450) Mean Platelet Volume 5.1 FL (6.5-10.1) Neutrophils (%) (Auto) 59.8 % (45.0-75.0) Lymphocytes (%) (Auto) 31.2 % (20.0-45.0) Monocytes (%) (Auto) 5.5 % (1.0-10.0) Eosinophils (%) (Auto) 2.8 % (0.0-3.0) Basophils (%) (Auto) 0.7 % (0.0-2.0) Sodium Level 137 MMOL/L (136-145) Potassium Level 3.8 MMOL/L (3.5-5.1) Chloride Level 106 MMOL/L (98-107) Carbon Dioxide Level 24 MMOL/L (21-32) Anion Gap 7 mmol/L (5-15) Blood Urea Nitrogen 10 mg/dL (7-18) Creatinine 0.6 MG/DL (0.55-1.30) Estimat Glomerular Filtration Rate > 60 mL/min (>60) Glucose Level 85 MG/DL (74-106) Calcium Level 8.9 MG/DL (8.5-10.1) Height (Feet): 5 Height (Inches): 1.00 Weight (Pounds): 245 Objective HEENT: PERRLA. NECK: Supple. CHEST: Clear to auscultation. CARDIOVASCULAR: Regular rhythm and rhythm. GASTROINTESTINAL: Soft, nontender, and nondistended. No organomegaly. EXTREMITIES: No edema. NEUROLOGIC: Sensory intact to light touch. Reflexes on both sides. Carlito Jesus MD Nov 27, 2018 18:12
--- NOTE | 2018-11-27 18:37 | NUR ---
NURSE NOTES: Patient left the unit accompanied by COOPERER. IV site removed, asymptomatic, catheter intact. No hematoma and/or bleeding noted. Primary RN reiterate discharge instructions with the patient; pt verbalized understanding. Belongings checked and signed. Patient will be picked up by family via private vehicle. Green folder provided.
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
--- NOTE | 2018-11-27 23:01 | Diagnostic Imaging Report ---
APPROVED REPORT CPT Code: 94769 Present Symptoms Lower Extremity Pain: BILATERAL: Imaging reveals a patent deep venous system bilaterally. There is no evidence of thrombus within the femoral, popliteal or tibial segments. The greater saphenous veins are also within normal limits. Doppler indicates normal spontaneous flow within these segments.
--- NOTE | 2018-11-28 02:15 | Progress Note ---
DATE: 11/27/2018 HISTORY: The patient continues to have anxiety, withdrawn, isolated, depressed mood, worthlessness, hopelessness, and decreased energy, stable. No suicidal or homicidal ideation. The patient will be following up with her outpatient psychiatrist. Provided the patient with reality orientation and supportive therapy. Carmine Hardwick M.D. DR: CHELSEA JOB#: [id number] CC: RANJEET
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
--- NOTE | 2018-11-30 19:59 | Cardiology Report ---
APPROVED REPORT EKG Measurement Heart [id number] Normal sinus rhythm Prolonged QT Abnormal ECG
== END 2018-11-27 18:47 | disposition home or self-care (01) | DRG 281 ==
LOC: EDBD 11:56 → EMR 13:10 → 2W 14:02 → EDBEDREQ 15:12 → 3E 11-26 16:58
DX: I21.4 Non-ST elevation (NSTEMI) myocardial infarction (principal); N39.0 Urinary tract infection, site not specified; Z68.42 Body mass index [BMI] 45.0-49.9, adult; T76.21XA Adult sexual abuse, suspected, initial encounter; T43.623A Poisoning by amphetamines, assault, initial encounter; F15.988 Other stimulant use, unspecified with other stimulant-induced disorder; E66.9 Obesity, unspecified; F32.9 Major depressive disorder, single episode, unspecified; R55 Syncope and collapse; D50.9 Iron deficiency anemia, unspecified; E87.6 Hypokalemia; E86.0 Dehydration; F41.9 Anxiety disorder, unspecified
CPT/HCPCS: 36415; 71045; 80048; 80053; 80061; 80307; 80329; 81003; 81025; 82248; 82550; 82607; 82728; 82746; 83036; 83525; 83540; 83550; 83735; 83880; 84100; 84443; 84484; 84550; 85025; 86140; 87491; 87590; 93005; 93306; 93970; 96361; 96365; 96375; 99285; J2405; J8499